=== PATIENT | female | born 1965 | race African-American/Black ===

== ENCOUNTER 2019-02-08 14:54 | Inpatient (IN) | payer OTHER ==
--- NOTE | 2019-02-08 15:01 | PDOC ---
Rapid Medical Evaluation Time Seen by Provider: 02/08/19 14:56 Medical Evaluation: 02/08/19 14:56 I have performed a brief in-person evaluation of this patient. The patient presents with a chief complaint of: asymptomatic HTN Pertinent physical exam findings: BP- 241/129, HR-120. PE grossly normal. I have ordered the following: ekg The patient will proceed to the ED for further evaluation. Discharge Disposition - Diagnosis Hypertension - Referrals - Patient Instructions - Post Discharge Activity
--- NOTE | 2019-02-08 15:05 | PDOC ---
History of Present Illness - General Chief Complaint: Blood Pressure Problem Stated Complaint: HYPERTENSION Time Seen by Provider: 02/08/19 14:56 History Source: Patient Exam Limitations: No Limitations - History of Present Illness Initial Comments: 53 yo F w a hx of HTN presents to the ER sent here for asymptomatic hypertension. The patient's BP at bedside is 241/127. The patient states she just moved from [place] and ran out of her BP meds over a month ago. She does not know the name of her BP medications off hand. She states she has been taking black cohosh to help her with hot flashes. She denies illicit drug use, phenylephrine, pseudoephedrine, or other OTC cold remedies. She does endorses some nasal congestion over the past week and states she is getting over a cold. She denies having a headache, blurry vision, nausea, vomiting, chest pain, back pain, SOB, difficulty breathing, abdominal pain, flank pain, ankle/leg swelling , dysuria, frequency, or urgency. PCP: None Supreme Court Justice: None Allergies: Dust, NKDA Social Hx: Recently moved from [place]. Denies alcohol, smoking, or illicit drug usage. PSH: None reported Past History - Past Medical History Allergies/Adverse Reactions: Allergies Allergy/AdvReac Type Severity Reaction Status Date / Time No Known Drug Allergies Allergy Verified 02/08/19 16:10 dust Allergy Uncoded 02/08/19 15:00 - Suicide/Smoking/Psychosocial Hx Smoking History: Never smoked Review of Systems - Review of Systems Able to Perform ROS?: Yes Comments:: CONSTITUTIONAL: No fever, no chills, no fatigue EYES: No visual changes ENT: No ear pain, no sore throat CARDIOVASCULAR: No chest pain, no palpitations RESPIRATORY: No cough, no SOB GI: No abdominal pain, no nausea, no vomiting, no constipation, no diarrhea GENITOURINARY: No dysuria, no frequency, no hematuria MUSKULOSKELETAL: No backpain, no joint pain, no myalgias SKIN: No rash NEURO: No headache *Physical Exam - Vital Signs Last Vital Signs Temp Pulse Resp BP Pulse Ox 97.7 F 120 H 20 241/127 H 100 02/08/19 15:00 02/08/19 15:00 02/08/19 15:00 02/08/19 15:00 02/08/19 15:00 - Physical Exam Comments: CONSTITUTIONAL: Well-appearing; well-nourished; in no apparent distress HEAD: Normocephalic; atraumatic EYES: PERRL; EOM intact ENMT: External appears normal; normal oropharynx NECK: Supple; non-tender; no cervical lymphadenopathy CARD: Tachycardic rate. Normal S1, S2; no murmurs, rubs, or gallops RESP: CTAB. No wheezes, rhonchi, or rales ABD: Soft, non-distended; non-tender; no palpable organomegaly, no palpable hernias EXT: Normal ROM in all four extremities; non-tender to palpation; distal pulses intact SKIN: Warm, dry, no rash NEURO: No focal neurological deficiencies. ED Treatment Course - LABORATORY CBC & Chemistry Diagram: 02/08/19 15:22 02/08/19 15:22 Medical Decision Making - Medical Decision Making 53 yo F w a hx of HTN presents to the ER sent here for asymptomatic hypertension. The patient's BP at bedside is 241/127. The patient states she just moved from [place] and ran out of her BP meds over a month ago. She does not know the name of her BP medications off hand. She states she has been taking black cohosh to help her with hot flashes. She denies illicit drug use, phenylephrine, pseudoephedrine, or other OTC cold remedies. She does endorses some nasal congestion over the past week and states she is getting over a cold. VS: Tachycardic to 120, hypertensively urgent. MDM: Patient presents with what appears to be hypertensive urgency. Will perform a workup to assess for end organ damage including cbc, cmp, troponin, u- tox, urine metanephrines, EKG, CXR, TSH and then re-assess. - Will give patient Labetalol for transient BP lowering - 20 mg IV not sufficient - 40 mg IV given for BP control. EKG: Sinus tachycardia at rate of 114, bi-atrial enlargement, no st elevations or depressions. Labs: Unremarkable. Patient is not experiencing a renal injury. Troponin and TSH are normal. Disposition: Patient doesn't have a PCP so will admit her to the hospital, get her blood pressure under control, and then DC her on PO BP medication. *DC/Admit/Observation/Transfer Diagnosis at time of Disposition: Hypertension, Hypertensive urgency, malignant - Discharge Dispostion Condition at time of disposition: Stable Decision to Admit order: Yes - Referrals - Patient Instructions - Post Discharge Activity
[2019-02-08] MEDS ORDERED: LABETALOL HCL 5 MG/1 ML (100MG/20 ML VIAL) IVPUSH ONE ×3 (15:33→16:16)
[2019-02-08] MEDS ORDERED: LABETALOL HCL 5 MG/1 ML (200MG/40ML VIAL) IVPB ONE (15:50)
[2019-02-08 15:54] LABS: BASO % 0.4 % (0-2.0); EOS % 2.6 % (0-4.5); HEMATOCRIT 43.1 % (32.4-45.2); HEMOGLOBIN 14.2 GM/dL (10.7-15.3); LYMPH % 34.9 % (8-40); MCH 27.9 pg (25.7-33.7); MCHC 32.9 g/dl (32.0-36.0); MEAN CELL VOLUME 84.6 fl (80-96); MEAN PLT VOLUME 8.9 fl (7.5-11.1); MONO % 9.8 % (3.8-10.2); NEUT % 52.3 % (42.8-82.8); PLATELET COUNT 338 K/MM3 (134-434); RBC 5.09 M/mm3 (3.60-5.2); RDW 15.3 % (11.6-15.6); WHITE BLOOD COUNT 6.4 K/mm3 (4.0-10.0)
[2019-02-08 15:57] LABS: INR 1.14 (0.83-1.09); PROTHROMBIN TIME (PATIENT) 13.5 SEC (9.7-13.0)
[2019-02-08 16:24] LABS: ALK PHOS 132 U/L (45-117); ANION GAP 3 MMOL/L (8-16); BILIRUBIN,TOTAL 0.5 mg/dL (0.2-1); BLOOD UREA NITROGEN 15.2 mg/dL (7-18); CALCIUM 9.7 mg/dL (8.5-10.1); CHLORIDE 106 mmol/L (98-107); CO2 30 mmol/L (21-32); CREATININE 1.1 mg/dL (0.55-1.3); GLUCOSE,RANDOM 107 mg/dL (74-106); POTASSIUM 3.6 mmol/L (3.5-5.1); SGOT/AST 23 U/L (15-37); SGPT/ALT 21 U/L (13-61); SODIUM 138 mmol/L (136-145); TOT PROT 8.2 g/dl (6.4-8.2)
[2019-02-08 16:27] LABS: URINE APPEARANCE CLEAR; URINE BILIRUBIN NEGATIVE (NEGATIVE); URINE COLOR YELLOW; URINE GLUCOSE (UA) NEGATIVE (NEGATIVE); URINE KETONE NEGATIVE (NEGATIVE); URINE LEUK ESTERASE NEGATIVE (NEGATIVE); URINE NITRITE NEGATIVE (NEGATIVE); URINE PROTEIN NEGATIVE (NEGATIVE); URINE UROBILINOGEN 0.2 mg/dL (0.2-1.0)
[2019-02-08] MEDS ORDERED: METOPROLOL TARTRATE 25 MG TABLET (FP) PO ONE (16:36)
[2019-02-08] MEDS ORDERED: METOPROLOL TARTRATE 25 MG TABLET (FP) ONE (16:43)
[2019-02-08 16:46] LABS: COCAINE, UR NEGATIVE ng/ml (CUTOFF=300); METHADONE, UR NEGATIVE ng/ml (CUTOFF=300); OPIATES, URI NEGATIVE ng/ml (CUTOFF=300); PHENCYCLIDINE,URINE NEGATIVE ng/ml (CUTOFF=25); URINE AMPHETAMINES NEGATIVE ng/ml (CUTOFF=500); URINE BARBITURATES NEGATIVE ng/ml (CUTOFF=200); URINE BENZODIAZEPINES NEGATIVE ng/ml (CUTOFF=200)
--- NOTE | 2019-02-08 17:33 | CON.CARD ---
Consult Consult Specialty:: Cardiology Referred by:: Emergency Medicine Reason for Consultation:: Hypertensive urgency - History of Present Illness Chief Complaint: Elevated BP History of Present Illness: 53 yo F w a hx of HTN presents to the ER sent here for asymptomatic hypertension. The patient's BP at bedside is 241/127. The patient states she just moved from [place] and ran out of her BP meds over a month ago. She does not know the name of her BP medications off hand. She denies illicit drug use, phenylephrine, pseudoephedrine, or other OTC cold remedies. She denies having a headache, blurry vision, nausea, vomiting, chest pain, back pain, SOB, difficulty breathing, abdominal pain, flank pain, ankle/leg swelling, near or true syncope. PCP: None Tail Worker: None Allergies: Dust, NKDA Social Hx: Recently moved from [place]. Denies alcohol, smoking, or illicit drug usage. PSH: None reported - History Source History Provided By: Patient Limitations to Obtaining History: No Limitations - Past Medical History Cardio/Vascular: Yes: HTN - Smoking History Smoking history: Never smoked Home Medications - Allergies Allergies/Adverse Reactions: Allergies Allergy/AdvReac Type Severity Reaction Status Date / Time No Known Drug Allergies Allergy Verified 02/08/19 16:10 dust Allergy Uncoded 02/08/19 15:00 - Home Medications Home Medications: Ambulatory Orders Unobtainable 02/08/19 Vital Signs: Vital Signs Temperature 98.0 F 02/08/19 17:24 Pulse Rate 91 H 02/08/19 17:24 Respiratory Rate 18 02/08/19 17:24 Blood Pressure 189/102 H 02/08/19 17:24 O2 Sat by Pulse Oximetry (%) 98 02/08/19 17:24 Constitutional: Yes: No Distress, Calm, Thin Neck: Yes: Supple Respiratory: Yes: Regular, CTA Bilaterally Gastrointestinal: Yes: Normal Bowel Sounds, Soft Cardiovascular: Yes: Regular Rate and Rhythm JVD: No Carotid Bruit: No Heart Sounds: Yes: S1, S2 Edema: No - Other Data Labs, Other Data: CBC, BMP 02/08/19 15:22 02/08/19 15:22 INR, PTT INR 1.14 (0.83-1.09) H 02/08/19 15:22 Troponin, BNP 02/08/19 15:22 Troponin I < 0.02 Troponin, BNP 02/08/19 15:22 Troponin I < 0.02 ST @ 114 [place] Ejection Fraction %: LVEF > or = 40 % Imaging - Results Chest X-ray: Report Reviewed (NAD) Problem List - Problems (1) Noncompliance with medication regimen Code(s): Z91.14 - PATIENT'S OTHER NONCOMPLIANCE WITH MEDICATION REGIMEN (2) Hypertensive urgency, malignant Code(s): I16.0 - HYPERTENSIVE URGENCY Assessment/Plan 1. Hypertensive urgency 2. Medication noncompliance P:1. Start carvedilol 6.25 bid and Diovan 80 qd with uptitration as tolerated 2. Echo to assess ventricular and valve fxn 3. Counselled on low salt diet, NSAID avoidance, medication compliance 4. Thank you for consultative opportunity
[2019-02-08] MEDS ORDERED: CARVEDILOL 3.125 MG TABLET (FP) ONE ×2 (17:38→22:01)
[2019-02-08] MEDS: CARVEDILOL 6.25 MG TABLET (FP) PO SCH ×2 (17:45→22:11)
[2019-02-08] MEDS ORDERED: VALSARTAN 80 MG TABLET (UD) ONE (18:03)
[2019-02-08] MEDS: VALSARTAN 80 MG TABLET (UD) PO SCH (18:04)
--- NOTE | 2019-02-08 18:21 | HP ---
Admitting History and Physical - Primary Care Physician PCP: Cynthia Kevin - Admission History of Present Illness: 53 yo F w a hx of HTN presents to the ER sent here for asymptomatic hypertension. The patient's BP at bedside is 241/127. The patient states she just moved from [place] and ran out of her BP meds over a month ago. She does not know the name of her BP medications off hand. She states she has been taking black cohosh to help her with hot flashes. She denies illicit drug use, phenylephrine, pseudoephedrine, or other OTC cold remedies. She does endorses some nasal congestion over the past week and states she is getting over a cold. - Past Medical History Cardiovascular: Yes: HTN - Smoking History Smoking history: Never smoked Home Medications - Allergies Allergies/Adverse Reactions: Allergies Allergy/AdvReac Type Severity Reaction Status Date / Time No Known Drug Allergies Allergy Verified 02/08/19 16:10 dust Allergy Uncoded 02/08/19 15:00 - Home Medications Home Medications: Ambulatory Orders Carvedilol [Coreg -] 6.25 mg PO BID #60 tablet 02/09/19 Valsartan [Diovan] 80 mg PO DAILY #30 tablet 02/09/19 Physical Examination Vital Signs: Vital Signs Temperature 98.0 F 02/08/19 17:24 Pulse Rate 81 02/08/19 18:02 Respiratory Rate 18 02/08/19 18:02 Blood Pressure 195/104 H 02/08/19 18:02 O2 Sat by Pulse Oximetry (%) 98 02/08/19 18:02 Constitutional: Yes: No Distress HENT: Yes: Atraumatic Neck: Yes: Supple Cardiovascular: Yes: Regular Rate and Rhythm Respiratory: Yes: CTA Bilaterally Gastrointestinal: Yes: Normal Bowel Sounds Extremities: Yes: WNL Edema: No Neurological: Yes: Alert, Oriented Labs: CBC, BMP 02/08/19 15:22 02/08/19 15:22 Imaging - Results X-ray: Report Reviewed Problem List - Problems (1) Hypertension Assessment/Plan: monitor on tele meds per cardiology fu cardiac profile Code(s): I10 - ESSENTIAL (PRIMARY) HYPERTENSION (2) Hypertensive urgency, malignant Code(s): I16.0 - HYPERTENSIVE URGENCY Assessment/Plan Laboratory Tests 06/12/19 06/12/19 06/12/19 15:22 15:22 15:22 WBC 6.4 RBC 5.09 Hgb 14.2 Hct 43.1 MCV 84.6 MCH 27.9 MCHC 32.9 RDW 15.3 Plt Count 338 MPV 8.9 Absolute Neuts (auto) 3.3 Neutrophils % 52.3 Lymphocytes % 34.9 Monocytes % 9.8 Eosinophils % 2.6 Basophils % 0.4 Nucleated RBC % 0 PT with INR 13.50 H INR 1.14 H Sodium 138 Potassium 3.6 Chloride 106 Carbon Dioxide 30 Anion Gap 3 L BUN 15.2 Creatinine 1.1 Est GFR (CKD-EPI)AfAm 65.45 Est GFR (CKD-EPI)NonAf 56.47 Random Glucose 107 H Calcium 9.7 Total Bilirubin 0.5 AST 23 ALT 21 Alkaline Phosphatase 132 H Troponin I < 0.02 Total Protein 8.2 Albumin 4.0 TSH Urine Color Urine Appearance Urine pH Ur Specific [place] Urine Protein Urine Glucose (UA) Urine Ketones Urine Blood Urine Nitrite Urine Bilirubin Urine Urobilinogen Ur Leukocyte Esterase Urine HCG, Qual Opiates Screen Methadone Screen Barbiturate Screen Phencyclidine Screen Ur Amphetamines Screen MDMA (Ecstasy) Screen Benzodiazepines Screen Cocaine Screen U Marijuana (THC) Screen 02/08/19 02/08/19 02/08/19 15:22 15:42 16:00 WBC RBC Hgb Hct MCV MCH MCHC RDW Plt Count MPV Absolute Neuts (auto) Neutrophils % Lymphocytes % Monocytes % Eosinophils % Basophils % Nucleated RBC % PT with INR INR Sodium Potassium Chloride Carbon Dioxide Anion Gap BUN Creatinine Est GFR (CKD-EPI)AfAm Est GFR (CKD-EPI)NonAf Random Glucose Calcium Total Bilirubin AST ALT Alkaline Phosphatase Troponin I Total Protein Albumin TSH 1.35 Urine Color Urine Appearance Urine pH Ur Specific [place] Urine Protein Urine Glucose (UA) Urine Ketones Urine Blood Urine Nitrite Urine Bilirubin Urine Urobilinogen Ur Leukocyte Esterase Urine HCG, Qual Negative Opiates Screen Negative Methadone Screen Negative Barbiturate Screen Negative Phencyclidine Screen Negative Ur Amphetamines Screen Negative MDMA (Ecstasy) Screen Negative Benzodiazepines Screen Negative Cocaine Screen Negative U Marijuana (THC) Screen Negative 02/08/19 16:00 WBC RBC Hgb Hct MCV MCH MCHC RDW Plt Count MPV Absolute Neuts (auto) Neutrophils % Lymphocytes % Monocytes % Eosinophils % Basophils % Nucleated RBC % PT with INR INR Sodium Potassium Chloride Carbon Dioxide Anion Gap BUN Creatinine Est GFR (CKD-EPI)AfAm Est GFR (CKD-EPI)NonAf Random Glucose Calcium Total Bilirubin AST ALT Alkaline Phosphatase Troponin I Total Protein Albumin TSH Urine Color Yellow Urine Appearance Clear Urine pH 6.0 Ur Specific [place] 1.003 L Urine Protein Negative Urine Glucose (UA) Negative Urine Ketones Negative Urine Blood Negative Urine Nitrite Negative Urine Bilirubin Negative Urine Urobilinogen 0.2 Ur Leukocyte Esterase Negative Urine HCG, Qual Opiates Screen Methadone Screen Barbiturate Screen Phencyclidine Screen Ur Amphetamines Screen MDMA (Ecstasy) Screen Benzodiazepines Screen Cocaine Screen U Marijuana (THC) Screen Active Medications Generic Name Dose Route Start Last Admin Trade Name Freq PRN Reason Stop Dose Admin Carvedilol 6.25 mg 02/08/19 17:34 02/08/19 17:45 Coreg - PO 6.25 mg BID KERMIT Administration Valsartan 80 mg 02/08/19 18:00 02/08/19 18:04 Diovan - PO 80 mg DAILY KERMIT Administration
[2019-02-08] MEDS ORDERED: ACETAMINOPHEN 325 MG TABLET (FP) PO PRN (20:12)
--- NOTE | 2019-02-09 09:35 | PN ---
Progress Note, Physician History of Present Illness: BP improving, remains asymptomatic and denies chest pain, dyspnea, headache. - Current Medication List Current Medications: Active Medications Acetaminophen (Tylenol -) 650 mg PO Q6H PRN PRN Reason: FEVER Carvedilol (Coreg -) 6.25 mg PO BID [facility] Last Admin: 02/08/19 22:11 Dose: 6.25 mg Valsartan (Diovan -) 80 mg PO DAILY [facility] Last Admin: 02/08/19 18:04 Dose: 80 mg - Objective Vital Signs: Vital Signs Temperature 98.1 F 02/09/19 06:00 Pulse Rate 94 H 02/09/19 06:00 Respiratory Rate 16 02/09/19 06:00 Blood Pressure 167/101 H 02/09/19 06:00 O2 Sat by Pulse Oximetry (%) 97 02/09/19 06:00 Constitutional: Yes: No Distress, Calm, Thin Neck: Yes: Supple Cardiovascular: Yes: Regular Rate and Rhythm Respiratory: Yes: Regular, CTA Bilaterally Gastrointestinal: Yes: Soft, Hypoactive Bowel Sounds Edema: No Labs: CBC, BMP 02/08/19 15:22 02/08/19 15:22 INR, PTT INR 1.14 (0.83-1.09) H 02/08/19 15:22 Problem List - Problems (1) Noncompliance with medication regimen Code(s): Z91.14 - PATIENT'S OTHER NONCOMPLIANCE WITH MEDICATION REGIMEN (2) Hypertensive urgency, malignant Code(s): I16.0 - HYPERTENSIVE URGENCY Assessment/Plan 1. Hypertensive urgency 2. Medication noncompliance P:1. Continue carvedilol 6.25 bid and Diovan 80 qd with uptitration as tolerated 2. Echo to assess ventricular and valve fxn 3. Counselled on low salt diet, NSAID avoidance, medication compliance 4. D/c planning pending above study results
[2019-02-09] MEDS: CARVEDILOL 6.25 MG TABLET (FP) PO SCH ×2 (09:55→22:14)
[2019-02-09] MEDS: VALSARTAN 80 MG TABLET (UD) PO SCH (09:56)
--- NOTE | 2019-02-09 11:47 | EKG ---
Test Reason : Blood Pressure : / mmHG Vent. Rate : 114 BPM Atrial Rate : 114 BPM P-R Int : 158 ms QRS Dur : 076 ms QT Int : 334 ms P-R-T Axes : 049 009 031 degrees QTc Int : 460 ms POOR DATA QUALITY, INTERPRETATION MAY BE ADVERSELY AFFECTED SINUS TACHYCARDIA BIATRIAL ENLARGEMENT ABNORMAL ECG NO PREVIOUS ECGS AVAILABLE Confirmed by LUIS ARMANDO CASILLAS, JUDY ([id number]) on 02/09/2019 11:47:18 AM Referred By: Confirmed By:JUDY DRUÁN MD
--- NOTE | 2019-02-09 12:25 | ECHO ---
Name: SALLIE SINGH Exam:Adult Echocardiogram Study Date: 02/09/2019 08:11 AM Age: 53 yrs Reason For Study: Hypertensive Height: 66 in Weight: 154 lb BSA: 1.8 m2 MMode/2D Measurements & Calculations IVSd: 1.00 cm Ao root diam: 3.1 cm LVIDd: 2.9 cm ACS: 1.8 cm LVIDs: 2.0 cm LVPWd: 1.2 cm EDV(Teich): 32.4 ml LVOT diam: 2.0 cm ESV(Teich): 12.3 ml RV S Driss: 9.4 cm/sec Doppler Measurements & Calculations MV E max driss: 73.4 cm/sec Ao V2 max: 143.3 cm/sec MV A max driss: 91.9 cm/sec Ao max P.2 mmHg MV E/A: 0.80 Ao V2 mean: 89.0 cm/sec Ao mean P.0 mmHg Ao V2 VTI: 28.8 cm Med Peak E' Driss: 15.6 cm/sec Med E/e': 4.7 Lat Peak E' Driss: 10.3 cm/sec Lat E/e': 7.1 Procedure A complete two-dimensional transthoracic echocardiogram was performed (2D, M-mode, Doppler and color flow Doppler). Left Ventricle The left ventricular size, thickness and function are normal. The left ventricular ejection fraction is normal. Ejection Fraction = 60-65%. The left ventricular wall motion is normal. Right Ventricle The right ventricle is normal in size and function. Atria Normal left and right atrial size and function. Mitral Valve There is mild mitral regurgitation. Tricuspid Valve No tricuspid regurgitation. There was insufficient TR detected to calculate RV systolic pressure. Aortic Valve The aortic valve is trileaflet. No hemodynamically significant valvular aortic stenosis. No aortic regurgitation is present. Pulmonic Valve There is no pulmonic valvular regurgitation. Great Vessels The aortic root is normal size. Pericardium/Pleura There is no pericardial effusion. Interpretation Summary The left ventricular size, thickness and function are normal The right ventricle is normal in size and function. There is mild mitral regurgitation. MD Shashi Aponte 02/09/2019 12:24 PM
--- NOTE | 2019-02-09 14:50 | PN ---
Progress Note, Physician - Current Medication List Current Medications: Active Medications Acetaminophen (Tylenol -) 650 mg PO Q6H PRN PRN Reason: FEVER Carvedilol (Coreg -) 6.25 mg PO BID [facility] Last Admin: 02/09/19 09:55 Dose: 6.25 mg Valsartan (Diovan -) 80 mg PO DAILY [facility] Last Admin: 02/09/19 09:56 Dose: 80 mg - Objective Vital Signs: Vital Signs Temperature 97.8 F 02/09/19 11:30 Pulse Rate 100 H 02/09/19 11:30 Respiratory Rate 20 02/09/19 11:30 Blood Pressure 175/100 H 02/09/19 11:30 O2 Sat by Pulse Oximetry (%) 97 02/09/19 11:30 Constitutional: Yes: No Distress HENT: Yes: Atraumatic Neck: Yes: Supple Cardiovascular: Yes: Regular Rate and Rhythm Respiratory: Yes: CTA Bilaterally Labs: CBC, BMP 02/08/19 15:22 02/08/19 15:22 INR, PTT INR 1.14 (0.83-1.09) H 02/08/19 15:22 Problem List - Problems (1) Hypertension Assessment/Plan: monitor on tele BP much improved Code(s): I10 - ESSENTIAL (PRIMARY) HYPERTENSION (2) Hypertensive urgency, malignant Assessment/Plan: on meds Code(s): I16.0 - HYPERTENSIVE URGENCY
[2019-02-09 17:13] VITALS: BMI 24.8
[2019-02-09] MEDS ORDERED: VALSARTAN 80 MG TABLET (UD) PO SCH (18:17)
[2019-02-09] MEDS ORDERED: VALSARTAN 80 MG TABLET (UD) PO ONE (18:17)
[2019-02-10 05:18] VITALS: TEMP 98
[2019-02-10 09:22] VITALS: BP 160/106; PULSE 96
[2019-02-10] MEDS: CARVEDILOL 6.25 MG TABLET (FP) PO SCH (09:46)
--- NOTE | 2019-02-10 09:59 | PN ---
Progress Note, Physician History of Present Illness: BP improving, remains asymptomatic and denies chest pain, dyspnea, headache. - Current Medication List Current Medications: Active Medications Acetaminophen (Tylenol -) 650 mg PO Q6H PRN PRN Reason: FEVER Carvedilol (Coreg -) 6.25 mg PO BID [facility] Last Admin: 02/10/19 09:46 Dose: 6.25 mg Valsartan (Diovan -) 160 mg PO DAILY [facility] Last Admin: 02/10/19 09:46 Dose: 160 mg - Objective Vital Signs: Vital Signs Temperature 98 F 02/10/19 05:17 Pulse Rate 96 H 02/10/19 09:00 Respiratory Rate 18 02/10/19 09:00 Blood Pressure 160/106 H 02/10/19 09:00 O2 Sat by Pulse Oximetry (%) 97 02/09/19 21:00 Constitutional: Yes: No Distress, Calm, Thin Neck: Yes: Supple Cardiovascular: Yes: Regular Rate and Rhythm Respiratory: Yes: Regular, CTA Bilaterally Gastrointestinal: Yes: Normal Bowel Sounds, Soft Edema: No Labs: CBC, BMP 02/08/19 15:22 02/08/19 15:22 INR, PTT INR 1.14 (0.83-1.09) H 02/08/19 15:22 - ....Imaging EKG: Report Reviewed (Tele: NSR) Problem List - Problems (1) Noncompliance with medication regimen Code(s): Z91.14 - PATIENT'S OTHER NONCOMPLIANCE WITH MEDICATION REGIMEN (2) Hypertensive urgency, malignant Code(s): I16.0 - HYPERTENSIVE URGENCY Assessment/Plan 02/09/2019 Echo: Normal LV and RV size and fxn, mild MR 1. Hypertensive urgency 2. Medication noncompliance P:1. Continue carvedilol 6.25 bid and Diovan 160 qd with uptitration as tolerated 2. Reviewed echo results with patient 3. Counselled on low salt diet, NSAID avoidance, medication compliance 4. D/c planning with f/u in office
[2019-02-10] MEDS ORDERED: VALSARTAN 80 MG TABLET (UD) PO SCH (10:00)
--- NOTE | 2019-02-10 11:46 | DS ---
Physical Examination Vital Signs: Vital Signs Temperature 98 F 02/10/19 05:17 Pulse Rate 96 H 02/10/19 09:00 Respiratory Rate 18 02/10/19 09:00 Blood Pressure 160/106 H 02/10/19 09:00 O2 Sat by Pulse Oximetry (%) 97 02/09/19 21:00 Constitutional: Yes: No Distress HENT: Yes: Atraumatic Neck: Yes: Supple Cardiovascular: Yes: Regular Rate and Rhythm Respiratory: Yes: CTA Bilaterally Gastrointestinal: Yes: Normal Bowel Sounds Extremities: Yes: WNL Neurological: Yes: Alert, Oriented Labs: CBC, BMP 02/08/19 15:22 02/08/19 15:22 Discharge Summary Reason For Visit: MALIGNANT HPERTENSIVE URGENCY Current Active Problems Hypertension (Acute) Hypertensive urgency, malignant (Acute) Noncompliance with medication regimen (Acute) Condition: Stable - Instructions Disposition: HOME - Home Medications Comprehensive Discharge Medication List: Ambulatory Orders Carvedilol [Coreg -] 6.25 mg PO BID #60 tablet 02/09/19 Valsartan [Diovan] 80 mg PO DAILY #30 tablet 02/09/19 dc home fu cardiology
== END 2019-02-10 13:30 | disposition home or self-care (01) | DRG 305 ==
LOC: JER 14:54 → JERBED 16:34 → J4W 02-09 15:51
PROVIDERS: ADMIT Internal Medicine; ATTEND Internal Medicine
DX: I16.0 Hypertensive urgency (principal); I10 Essential (primary) hypertension; Z91.14 Patient's other noncompliance with medication regimen
CPT/HCPCS: 36415; 71046-TC-FY; 80053; 80307; 81003; 84443; 84484; 84703; 85025; 85610; 93005; 93010; 93306-TC; 99285-25